=== PATIENT | female | born 1975 | race Caucasian/White ===

== ENCOUNTER 2022-03-09 22:24 | Emergency (ER) | payer OTHER ==
[2022-03-09 22:57] VITALS: BP 168/82; PULSE 97; RESP 22; TEMP 98.1
--- NOTE | 2022-03-10 00:44 | ED ---
General Adult HPI - General Chief complaint: Recheck/Abnormal Lab/Rx Stated complaint: Covid Test Time Seen by Provider: 03/09/22 23:12 Source: patient, family Mode of arrival: ambulatory Limitations: no limitations - History of Present Illness Initial comments: Patient is a 46-year-old female who presents due to COVID-19 exposure. Patient was exposed by her son who had a positive home test today. Patient endorses nasal congestion and sore throat. Symptoms started 2 days ago. Denies fever, chest pain, shortness of breath, and other concerns. - Related Data Previous Rx's Medication Instructions Recorded Fluticasone Nasal [place] [Flonase 2 spray EA NOSTRIL DAILY #16 gm 03/10/22 Nasal [place]] Allergies Allergy/AdvReac Type Severity Reaction Status Date / Time Penicillins Allergy Rash/Hives Verified 03/09/22 22:57 Review of Systems ROS Statement: Those systems with pertinent positive or pertinent negative responses have been documented in the HPI. ROS Other: All systems not noted in ROS Statement are negative. Past Medical History Past Medical History: No Reported History History of Any Multi-Drug Resistant Organisms: None Reported Past Surgical History: Section, Hysterectomy Past Psychological History: No Psychological Hx Reported Smoking Status: Former smoker, Vaper Past Alcohol Use History: None Reported Past Drug Use History: Marijuana General Exam Limitations: no limitations General appearance: alert, in no apparent distress Respiratory exam: Present: normal lung sounds bilaterally. Absent: respiratory distress, wheezes, rales, rhonchi, stridor Cardiovascular Exam: Present: regular rate, normal rhythm, normal heart sounds. Absent: systolic murmur, diastolic murmur, rubs, gallop, clicks Neurological exam: Present: alert, oriented X3, CN II-XII intact Psychiatric exam: Present: normal affect, normal mood Skin exam: Present: warm, dry, intact, normal color. Absent: rash Course Vital Signs 03/09/22 22:54 Temperature 98.1 F Pulse Rate 97 Respiratory 22 Rate Blood Pressure 168/82 O2 Sat by Pulse 94 L Oximetry Medical Decision Making - Medical Decision Making This is a 46-year-old female who presents with COVID-19 symptoms after exposure. Thorough history and examination were performed. Patient is well-appearing and in no apparent distress. Afebrile. Covid-19 is not detected. This may be a false negative. Patient experiencing mild COVID-19 symptoms. She will be discharged symptomatic treatment. Return parameters discussed. She verbalizes understanding. Dr. Negrete is my attending - Lab Data Lab Results 03/09/22 Range/Units 23:04 Coronavirus (PCR) Not Detected (Not Detectd) Disposition Clinical Impression: Encounter for screening for COVID-19 Disposition: HOME SELF-CARE Condition: Good Instructions (If sedation given, give patient instructions): Coronavirus Disease 2019 (COVID-19) Additional Instructions: Please wear a mask for 10 days as you were exposed to COVID-19 and could develop infection. Use nasal spray for congestion. Take Tylenol or Motrin for headache. Use salt water gargles or lozenges for throat pain. Increase water intake. Return to the emergency department if you experience new, concerning, or worsening symptoms. Prescriptions: Fluticasone Nasal [place] [Flonase Nasal [place]] 2 spray EA NOSTRIL DAILY #16 gm Is patient prescribed a controlled substance at d/c from ED?: No Referrals: Shoshana Brannon MD [Primary Care Provider] - 1-2 days Time of Disposition: 00:44
== END 2022-03-10 01:12 | disposition home or self-care (01) ==
LOC: EC 22:24
DX: Z20.822 Contact with and (suspected) exposure to COVID-19 (principal); F17.290 Nicotine dependence, other tobacco product, uncomplicated; F12.90 Cannabis use, unspecified, uncomplicated; Z88.0 Allergy status to penicillin
CPT/HCPCS: 87635; 99283

== ENCOUNTER 2022-07-30 07:32 | Emergency (ER) | payer OTHER ==
[2022-07-30 08:03] VITALS: RESP 18
--- NOTE | 2022-07-30 08:11 | XR ---
EXAMINATION TYPE: XR chest 2V DATE OF EXAM: 07/30/2022 8:06 AM COMPARISON: None TECHNIQUE: XR chest 2V Frontal and lateral views of the chest. CLINICAL INDICATION:Female, 47 years old with history of cough; FINDINGS: Lungs/Pleura: Masslike opacity measuring 5.4 cm in the right middle lobe which is more pronounced on lateral imaging. There is no evidence of pleural effusion, or pneumothorax. Pulmonary vascularity: Unremarkable. Heart/mediastinum: Cardiomediastinal silhouette is unremarkable. Musculoskeletal: No acute osseous pathology. IMPRESSION: Masslike opacity in the right middle lobe measuring up to 5.4 cm. Findings favor pneumonia with mesen yemi excluded. Consider CT for confirmation.
[2022-07-30] MEDS ORDERED: SODIUM CHLORIDE 0.9% 1,000 ML IV ONE (08:16)
--- NOTE | 2022-07-30 08:46 | ED ---
General Adult HPI - General Chief complaint: Dizziness Stated complaint: dizziness, fever Time Seen by Provider: 07/30/22 07:37 Source: patient Mode of arrival: wheelchair Limitations: no limitations - History of Present Illness Initial comments: This patient is a 47-year-old woman who presents to have evaluation for a constellation of symptoms that includes cough, hemoptysis, lightheadedness. She states that she hasn't been feeling well going back number weeks. She had been to an urgent care where she was diagnosed with pneumonia, and she completed 2 courses of antibiotics. The patient does not recall the first course but states she was subsequent only treated with doxycycline ending this a few days ago. She states that the cough remains. She has been bringing up small amount of blood-tinged sputum. Over the course of last night and this morning when she walks around she feels lightheaded or dizzy. Patient denies chest pain. She has not been having fever or chills. No upper respiratory symptoms currently. Onset/Timin -: days(s) Severity scale (1-10): 0 Improves with: none Worsens with: none Associated Symptoms: cough Treatments Prior to Arrival: other - Related Data Previous Rx's Medication Instructions Recorded Fluticasone Nasal [place] [Flonase 2 spray EA NOSTRIL DAILY #16 gm 03/10/22 Nasal [place]] Azithromycin [Zithromax] 0 mg PO DIRECTED #6 tab 07/30/22 metroNIDAZOLE 500 mg PO BID #30 tablet 07/30/22 Allergies Allergy/AdvReac Type Severity Reaction Status Date / Time Penicillins Allergy Rash/Hives Verified 07/30/22 07:34 Review of Systems ROS Statement: Those systems with pertinent positive or pertinent negative responses have been documented in the HPI. ROS Other: All systems not noted in ROS Statement are negative. Constitutional: Reports: weakness. Denies: fever, chills ENT: Denies: congestion Respiratory: Reports: cough, hemoptysis. Denies: dyspnea, wheezes Cardiovascular: Denies: chest pain, palpitations, edema Gastrointestinal: Denies: abdominal pain, vomiting, diarrhea Genitourinary: Denies: dysuria, hematuria Musculoskeletal: Denies: back pain Skin: Denies: rash Neurological: Denies: headache, weakness, numbness Past Medical History Past Medical History: No Reported History History of Any Multi-Drug Resistant Organisms: None Reported Past Surgical History: Section, Hysterectomy Past Psychological History: No Psychological Hx Reported Smoking Status: Former smoker, Vaper Past Alcohol Use History: None Reported Past Drug Use History: Marijuana General Exam Limitations: no limitations General appearance: alert, in no apparent distress Head exam: Present: atraumatic, normocephalic Eye exam: Present: normal appearance. Absent: scleral icterus, conjunctival injection ENT exam: Present: normal oropharynx Neck exam: Present: normal inspection Respiratory exam: Present: normal lung sounds bilaterally. Absent: respiratory distress, wheezes, rales, rhonchi, stridor Cardiovascular Exam: Present: regular rate, normal rhythm, normal heart sounds. Absent: systolic murmur, diastolic murmur, rubs, gallop GI/Abdominal exam: Present: soft. Absent: distended, tenderness, guarding, rebound, rigid, mass Extremities exam: Present: normal inspection, normal capillary refill. Absent: pedal edema, calf tenderness Back exam: Present: normal inspection. Absent: CVA tenderness (R), CVA tenderness (L) Neurological exam: Present: alert Skin exam: Present: warm, dry, intact, normal color. Absent: rash Course Vital Signs 07/30/22 07/30/22 07/30/22 07:34 08:00 08:09 Temperature 98.1 F Pulse Rate 108 H 101 H Respiratory 16 18 18 Rate Blood Pressure 167/87 136/81 O2 Sat by Pulse 96 96 Oximetry 07/30/22 07/30/22 07/30/22 09:25 11:10 11:49 Temperature 98.0 F Pulse Rate 95 106 H 98 Respiratory 18 18 18 Rate Blood Pressure 151/71 136/86 130/80 O2 Sat by Pulse 94 L 97 Oximetry Medical Decision Making - Medical Decision Making The patient had chest x-ray which I interpreted as showing right lower lobe infiltrate. Radiology reviewed the chest x-ray and did recommend computed tomography scan to rule out mass. I interpreted the computed tomography scan as showing right lower lobe infiltrate. No definite mass observed. This patient is a 47-year-old woman who presents with clinical presentation consistent with failed outpatient treatment for pneumonia versus other condition resulting in infiltrate of right lower lung. Given that she has new onset diagnosis of diabetes and he failed course of treatment for suspected pneumonia, I did strongly recommend admission, but the patient is refusing at this point. She states that she isn't known when the family who can transport other family members and in addition cannot miss work. She requested outpatient treatment. We discussed antibiotics and she subsequently remembered that she had taken a course of level floxacillin. The patient states she has previously tolerated Keflex and therefore is given dose of Rocephin and course of azithromycin. Patient is given oral hypoglycemic to take as well. We discussed appropriate further care and follow-up as well as return parameters and that she must be extra cautious. The patient does understand risk and will return if worsening or no improvement. Patient still requested to leave AGAINST MEDICAL ADVICE. Was pt. sent in by a medical professional or institution? @ -[No Did you speak to anyone other than the patient for history? @ -[Patient's son Did you review nursing and triage notes? @ -[agree Were old charts reviewed? @ -No Differential Diagnosis? @ -[Differential Dyspnea: Coronary syndrome, arrhythmia, tamponade, asthma, COPD, pulmonary embolism, pneumonia, pneumothorax, pulmonary effusion, diabetic ketoacidosis, anemia, neuromuscular, this is not meant to be an all-inclusive list. EKG interpreted by me (3pts min.)? @ -[See chart X-rays interpreted by me (1pt min.)? @ -[See chart CT interpreted by me (1pt min.)? @ -[none] U/S interpreted by me (1pt. min.)? @ -[none] What testing was considered but not performed? (CT, X-rays, U/S, labs)? Why? @ [ What meds were considered but not given? Why? @ -[none] Did you discuss the management of the patient with other professionals? @ -[None Did you reconcile home meds? @ -[none] Was smoking cessation discussed for >3mins.? @ -[Yes discussed cessation of vaping, Was critical care preformed (if so, how long)? @ -[none] Were there social determinants of health that impacted care today? How? (Homelessness, low income, unemployed, alcoholism, drug addiction, transportation, low edu. Level, literacy, decrease access to med. care, fpc, rehab)? @ -[tenuous employment situation Was there de-escalation of care discussed even if they declined? (Discuss DNR or withdrawal of care, Hospice)? @ No at co-morbidities impacted this encounter? (DM, HTN, Smoking, COPD, CAD, Cancer, CVA, Hep., AIDS, mental health diagnosis, sleep apnea, morbid obesity)? @ -[DM, morbid obesity?] Was patient admitted / discharged? @ Left AGAINST MEDICAL ADVICE ed new problem with uncertain prognosis? @ -[none] Drug Therapy requiring intensive monitoring for toxicity (Heparin, Nitro, Ins ulin, Cardizem)? @ -[none] Were any procedures done? @ -[none] Diagnosis/symptom? @ -[1. Acute pneumonia with failed outpatient medical treatment 2. New diagnosis diabetes mellitus Acute, or Chronic, or Acute on Chronic? @ Acute ed (without systemic symptoms) or Complicated (systemic symptoms)? @ Uncomplicated de effects of treatment? @ -[none] Exacerbation, Progression, or Severe Exacerbation] @ -[no] Poses a threat to life or bodily function? @ -[no] - Lab Data Result diagrams: 07/30/22 08:29 07/30/22 08:29 Lab Results 07/30/22 07/30/22 07/30/22 Range/Units 08:03 08:29 08:29 WBC 12.7 H (3.8-10.6) k/uL RBC 4.35 (3.80-5.40) m/uL Hgb 12.3 (11.4-16.0) gm/dL Hct 37.1 (34.0-46.0) % MCV 85.3 (80.0-100.0) fL MCH 28.2 (25.0-35.0) pg MCHC 33.1 (31.0-37.0) g/dL RDW 13.6 (11.5-15.5) % Plt Count 230 (150-450) k/uL MPV 8.1 Neutrophils % 84 % Lymphocytes % 10 % Monocytes % 4 % Eosinophils % 0 % Basophils % 0 % Neutrophils # 10.6 H (1.3-7.7) k/uL Lymphocytes # 1.3 (1.0-4.8) k/uL Monocytes # 0.6 (0-1.0) k/uL Eosinophils # 0.0 (0-0.7) k/uL Basophils # 0.0 (0-0.2) k/uL Sodium 133 L (137-145) mmol/L Potassium 4.2 (3.5-5.1) mmol/L Chloride 100 (98-107) mmol/L Carbon Dioxide 22 (22-30) mmol/L Anion Gap 11 mmol/L BUN 9 (7-17) mg/dL Creatinine 0.49 L (0.52-1.04) mg/dL Est GFR (CKD-EPI)AfAm >90 (>60 ml/min/1.73 sqM) Est GFR (CKD-EPI)NonAf >90 (>60 ml/min/1.73 sqM) Glucose 436 H (74-99) mg/dL POC Glucose (mg/dL) (70-110) mg/dL POC Glu Blower Operator ID Calcium 8.6 (8.4-10.2) mg/dL Total Bilirubin 0.6 (0.2-1.3) mg/dL AST 14 (14-36) U/L ALT 17 (4-34) U/L Alkaline Phosphatase 121 (38-126) U/L Total Protein 6.9 (6.3-8.2) g/dL Albumin 4.0 (3.5-5.0) g/dL Influenza Type A (PCR) Not Detected (Not Detectd) Influenza Type B (PCR) Not Detected (Not Detectd) RSV (PCR) Not Detected (Not Detectd) SARS-CoV-2 (PCR) Not Detected (Not Detectd) 07/30/22 07/30/22 Range/Units 09:31 10:11 WBC (3.8-10.6) k/uL RBC (3.80-5.40) m/uL Hgb (11.4-16.0) gm/dL Hct (34.0-46.0) % MCV (80.0-100.0) fL MCH (25.0-35.0) pg MCHC (31.0-37.0) g/dL RDW (11.5-15.5) % Plt Count (150-450) k/uL MPV Neutrophils % % Lymphocytes % % Monocytes % % Eosinophils % % Basophils % % Neutrophils # (1.3-7.7) k/uL Lymphocytes # (1.0-4.8) k/uL Monocytes # (0-1.0) k/uL Eosinophils # (0-0.7) k/uL Basophils # (0-0.2) k/uL Sodium (137-145) mmol/L Potassium (3.5-5.1) mmol/L Chloride (98-107) mmol/L Carbon Dioxide (22-30) mmol/L Anion Gap mmol/L BUN (7-17) mg/dL Creatinine (0.52-1.04) mg/dL Est GFR (CKD-EPI)AfAm (>60 ml/min/1.73 sqM) Est GFR (CKD-EPI)NonAf (>60 ml/min/1.73 sqM) Glucose (74-99) mg/dL POC Glucose (mg/dL) 372 H 320 H (70-110) mg/dL POC Glu Blower Operator [place] [facility] Calcium (8.4-10.2) mg/dL Total Bilirubin (0.2-1.3) mg/dL AST (14-36) U/L ALT (4-34) U/L Alkaline Phosphatase (38-126) U/L Total Protein (6.3-8.2) g/dL Albumin (3.5-5.0) g/dL Influenza Type A (PCR) (Not Detectd) Influenza Type B (PCR) (Not Detectd) RSV (PCR) (Not Detectd) SARS-CoV-2 (PCR) (Not Detectd) Disposition Clinical Impression: Pneumonia, Diabetes Disposition: Left Against Medical Advice Condition: Fair Instructions (If sedation given, give patient instructions): Type 2 Diabetes in Adults: New Diagnosis (DC), Pneumonia (ED) Prescriptions: metroNIDAZOLE 500 mg PO BID #30 tablet Azithromycin [Zithromax] 0 mg PO DIRECTED #6 tab Is patient prescribed a controlled substance at d/c from ED?: No Referrals: None,Stated [Primary Care Provider] - 1-2 days Missael Dykes MD [REFERRING] - 1-2 days
[2022-07-30 08:51] LABS: Basophils % (A) 0 %; Eosinophils % (A) 0 %; HCT 37.1 % (34.0-46.0); HGB 12.3 gm/dL (11.4-16.0); Lymphocytes # (A) 1.3 k/uL (1.0-4.8); Lymphocytes % (A) 10 %; MCH 28.2 pg (25.0-35.0); MCHC 33.1 g/dL (31.0-37.0); MCV 85.3 fL (80.0-100.0); Mean Platelet Volume 8.1; Monocytes # (A) 0.6 k/uL (0-1.0); Monocytes % (A) 4 %; Neutrophils # (A) 10.6 k/uL (1.3-7.7); Neutrophils % (A) 84 %; Platelet Count 230 k/uL (150-450); RBC 4.35 m/uL (3.80-5.40); RDW 13.6 % (11.5-15.5); WBC 12.7 k/uL (3.8-10.6)
[2022-07-30 09:12] LABS: Sodium 133 mmol/L (137-145)
[2022-07-30 09:15] LABS: AST 14 U/L (14-36); African American GFR (CKD) >90 (>60 ml/min/1.73 sqM); Anion Gap 11 mmol/L; Blood Urea Nitrogen 9 mg/dL (7-17); Carbon Dioxide 22 mmol/L (22-30); Chloride 100 mmol/L (98-107); Glucose 436 mg/dL (74-99); Non-African American GFR(CKD) >90 (>60 ml/min/1.73 sqM); Potassium 4.2 mmol/L (3.5-5.1); Total Bilirubin 0.6 mg/dL (0.2-1.3); Total Protein 6.9 g/dL (6.3-8.2)
[2022-07-30 09:16] LABS: ALT 17 U/L (4-34); Alkaline Phosphatase 121 U/L (38-126); Calcium 8.6 mg/dL (8.4-10.2)
[2022-07-30] MEDS ORDERED: INSULIN REGULAR 100 UNIT/ML VIAL (IV) SQ STA (09:21)
[2022-07-30] MEDS ORDERED: RX INFO: IV CONTRAST WAS GIVEN 1 EACH MISC MISCELLANE PRN (09:22)
[2022-07-30 09:33] LABS: Glucose,Whole Blood 372 mg/dL (70-110)
[2022-07-30 10:14] LABS: Glucose,Whole Blood 320 mg/dL (70-110)
--- NOTE | 2022-07-30 10:18 | CT ---
EXAMINATION TYPE: CT chest w con CT DLP: 599.5 mGycm, Automated exposure control for dose reduction was used. DATE OF EXAM: 07/30/2022 9:57 AM COMPARISON: Chest radiograph from same day. CLINICAL INDICATION:Female, 47 years old with history of evaluate R lung opacity; , Dizziness, fever and cough, TECHNIQUE: Multiple axial images were obtained through the chest. Sagittal and coronal reformats were created for review. Contrast used:100ml mL of Isovue 300 with IV Contrast Oral contrast used: none. FINDINGS: LUNGS/ PLEURA: Predominately peripheral opacity seen within the right middle lobe measures up to 6.6 x 3.8 x 6.1 cm. There is a lower density area within this consolidation measuring up to 11 mm along t he inferior aspect which may be normal lung parenchyma when evaluated on sagittal imaging. AIRWAY: Patent and unremarkable. HEART: Size within normal limits. MEDIASTINUM: No gross evidence of adenopathy. Epicardial fat lymph nodes is prominent measuring up to r 7 mm. Right low paratracheal lymph node is prominent measuring up to 10 mm in short axis. VASCULATURE: Descending thoracic aorta dilation/ectasia measuring 3.3 cm just past the great vessels. MUSCULOSKELETAL: No acute osseous abnormalities, mild multilevel disc degeneration changes throughout the spine. SOFT TISSUES/LYMPH NODES: Unremarkable. LOWER NECK: No significant findings. UPPER ABDOMEN: Hepatic steatosis. IMPRESSION: 1. Right middle lobe opacity which has a masslike appearance. Short-term follow-up after treatment f or pneumonia is recommended to ensure resolution. Underlying mass not entirely excluded. 2. Prominent right epicardial fat and mediastinal lymph nodes, attention follow-up imaging. 3. Marked Hepatic steatosis. 4. 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
[2022-07-30] MEDS ORDERED: AZITHROMYCIN 500 MG TAB PO STA (11:08)
[2022-07-30] MEDS: LEVOFLOXACIN 750 MG TAB PO STA ×2 (11:09→11:21)
[2022-07-30 11:11] VITALS: TEMP 98
[2022-07-30 11:53] VITALS: BP 130/80; PULSE 98
== END 2022-07-30 11:53 | disposition left against medical advice (07) ==
LOC: EC 07:32
DX: E11.9 Type 2 diabetes mellitus without complications (principal); J18.9 Pneumonia, unspecified organism; F12.90 Cannabis use, unspecified, uncomplicated; Z88.0 Allergy status to penicillin; Z87.891 Personal history of nicotine dependence; Z20.822 Contact with and (suspected) exposure to COVID-19; Z53.29 Procedure and treatment not carried out because of patient's decision for other reasons
CPT/HCPCS: 36415; 80053; 85025; 87040; 87636; 71046; 71260; 99284; 96365; 96361; J0696; Q9967

== ENCOUNTER → 2022-12-30 | Outpatient (CLI) | payer OTHER ==
--- NOTE | 2023-01-02 07:40 | MM ---
Reason for Exam: Screening (asymptomatic). Baseline mammogram. Patient History: Menarche at age 8. Left ovary removed at age 36. Right ovary removed at age 36. Hysterectomy at age 36. Postmenopausal. Patient has history of breast feeding. Paternal grandmother had breast cancer at or over age 50. Paternal grandmother had ovarian cancer at or over age 50. Maternal grandmother had ovarian cancer at or over age 50. Risk Values: Trinh 5 year model risk: 0.7%. NCI Lifetime model risk: 7.4%. Prior Study Comparison: Patient's first Mammogram. Tissue Density: There are scattered fibroglandular densities. Findings: Analyzed By CAD. There is no suspicious group of microcalcifications or new suspicious mass in either breast. Overall Assessment: Negative, BI-RAD 1 Management: Screening Mammogram of both breasts in [address] [facility] will attempt to contact patient to return for supplemental views and ultrasound if indicated. Patient should continue monthly self-breast exams. A clinical breast exam by your physician is recommended on an annual basis. This exam should not preclude additional follow-up of suspicious palpable abnormalities. Note on Trinh scores and lifetime risk: 1. A Trinh score greater than 3% is considered moderate risk. If this is the case, consider specialist referral to assess eligibility for a risk reducing agent. 2. If overall lifetime risk for the development of breast cancer is 20% or higher, the patient may qualify for future screening with alternating mammogram and breast MRI. Electronically signed and approved by: Ede Ramirez DO
== END | disposition home or self-care (01) ==
LOC: RADMAMWWP 06:53
PROVIDERS: ATTEND Internal Medicine
DX: Z12.31 Encounter for screening mammogram for malignant neoplasm of breast (principal); Z78.0 Asymptomatic menopausal state; Z80.3 Family history of malignant neoplasm of breast; Z80.41 Family history of malignant neoplasm of ovary
CPT/HCPCS: 77067